=== PATIENT | female | born 2000 | race African-American/Black ===

== ENCOUNTER 2025-05-13 19:33 | Inpatient (IN) | payer BC, SELFPAY ==
[2025-05-13 19:35] VITALS: BMI 26.5
[2025-05-13 20:39] VITALS: BP 115/78; PULSE 89; RESP 20; TEMP 36.6; O2SAT 100
[2025-05-13] MEDS: METOCLOPRAMIDE INJ 5 MG/ML VIAL 2 ML 10 MG IVP (21:06)
[2025-05-13] MEDS: RINGERS LACTATED 1000 ML 1,000 ML 999 ML IV ×2 (21:06→22:57)
--- NOTE | 2025-05-13 21:13 | PD.EDNV ---
Nausea/Vomit./Diarrhea-RME/HPI General Chief complaint: Nausea/Vomiting/Diarrhea Stated complaint: VOMITING Time Seen by Provider: 05/13/25 20:45 Arrival date/time: 05/13/25 19:33 24F with history of DM1 presents to ED with several days of epigastric pain and N/V. Zofran does not provide relief. Patient states this feels a bit like DKA, which she has had before. Limitations: no limitations Related Data Allergies Allergy/AdvReac Type Severity Reaction Status Date / Time sumatriptan (From Imitrex) Allergy Verified 05/13/25 19:38 Review of Systems Review of Systems Systems Reviewed: All systems reviewed, normal except as documented Constitutional Constitutional: Reports system reviewed and no additional complaints, except as documented, Denies fever(s) and Denies headache(s) ENT Ears, Nose, Mouth, and Throat: Denies disequilibrium and Denies headache(s) Cardiovascular Cardiovascular: Reports system reviewed and no additional complaints, except as documented, Denies chest pain and Denies dyspnea Respiratory Respiratory: Reports system reviewed and no additional complaints, except as documented, Denies cough and Denies dyspnea Gastrointestinal Gastrointestinal: Reports system reviewed and no additional complaints, except as documented, Reports as per HPI, Reports abdominal pain, Reports nausea and Reports vomiting Neurologic Neurologic: Reports system reviewed and no additional complaints, except as documented, Denies confusion, Denies disequilibrium and Denies headache(s) Psychiatric Psychiatric: Denies confusion Past Medical History Social History SMOKING STATUS: Never smoker ED Exam General Limitations: Present no limitations General appearance: Present alert and in no apparent distress Head Head exam: Present atraumatic Eye Eye exam: Present normal appearance, PERRL and EOMI ENT ENT exam: Present normal exam, normal oropharynx and mucous membranes moist Neck Neck exam: Present normal inspection, full ROM and trachea midline Chest Chest inspection: Present normal inspection and symmetric chest wall rise Respiratory Respiratory exam: Present normal lung sounds bilaterally Cardiovascular Cardiovascular exam: Present regular rate, normal rhythm and normal heart sounds Abdominal Exam Abdominal exam: Present soft and normal bowel sounds Extremities Exam Extremities exam: Present normal inspection and full ROM Back Exam Back exam: Present normal inspection and full ROM Neurological Exam Neurological exam: Present alert, oriented X3 and CN II-XII intact Psychiatric Psychiatric exam: Present normal affect and normal mood Skin Skin exam: Present warm, dry, intact and normal color Course Quality Measures none Orders Category Date Time Status Bedside Blood Glucose NOW Care 05/13/25 23:32 Active Bedside Blood Glucose Q6HR Care 05/13/25 23:51 Active COVID-19 Screening Questionnaire NOW Care 05/13/25 22:06 Active Decision to Admit X1 Care 05/13/25 22:06 Completed Fingerstick [Bedside Blood Glucose] NOW Care 05/13/25 20:00 Active Insert IV NOW Care 05/13/25 20:45 Active A1C [Glycohemoglobin w (eAG)] Stat Lab 05/13/25 21:25 Completed Beta Hydroxybutyrate Stat Lab 05/13/25 21:25 Completed CBC Stat Lab 05/13/25 21:25 Completed CMP [Comprehensive Metabolic Panel] Routine Lab 05/14/25 00:54 Completed CMP [Comprehensive Metabolic Panel] Stat Lab 05/13/25 21:25 Completed Drug Screen,Urine Stat Lab 05/13/25 23:10 Completed HCG Qualitative,Urine Stat Lab 05/13/25 23:10 Completed Lipase Stat Lab 05/13/25 21:25 Completed Mag [Magnesium] Stat Lab 05/13/25 21:25 Completed Phosphorous Stat Lab 05/13/25 21:25 Completed Urinalysis, C/S if Indicated Stat Lab 05/13/25 23:10 Completed VBG [Venous Blood Gas] Stat Lab 05/13/25 21:25 Completed Dextrose 50% Syr [D50w Syringe Abboject] Med 05/13/25 22:37 Active 25 ml IV Q15MIN PRN Dextrose 50% Syr [D50w Syringe Abboject] Med 05/13/25 22:37 Active 50 ml IV Q15MIN PRN DiphenhydrAMINE INJ [Benadryl Inj] Med 05/13/25 20:45 Discontinued 12.5 mg IVP X1 ONE Glucagon Inj Med 05/13/25 22:37 Active 1 mg IM Q15MIN PRN INSULIN LISPRO (AdmeLOG) [HumaLOG] Med 05/13/25 22:53 Discontinued 10 unit SC X1 ONE INSULIN LISPRO (AdmeLOG) [HumaLOG] Med 05/14/25 00:01 Discontinued 10 unit SC X1 ONE INSULIN LISPRO (AdmeLOG) [HumaLOG] Med 05/14/25 07:30 Discontinued See Protocol SC AC Insulin Glargine Inj [Lantus Inj] Med 05/13/25 23:00 Discontinued 20 unit SC ACHS Insulin Glargine Inj [Lantus Inj] Med 05/14/25 07:30 Discontinued 20 unit SC ACHS Insulin Glargine Inj [Lantus Inj] Med 05/14/25 21:00 Active 20 unit SC HS Insulin Glargine Inj [Lantus Inj] Med 05/13/25 23:37 Discontinued 20 unit SC X1 ONE Metoclopramide Inj [Reglan Inj] Med 05/13/25 20:45 Discontinued 10 mg IVP X1 ONE Ondansetron Inj [Zofran Inj] Med 05/13/25 22:59 Active 4 mg IVP Q8HR PRN Ringers Lactated 1000 ml [Lactated Ringers] 1,000 ml Med 05/13/25 20:45 Discontinued IV 999 mls/hr Ringers Lactated 1000 ml [Lactated Ringers] 1,000 ml Med 05/13/25 22:40 Discontinued IV 999 mls/hr Vital Signs Vital signs: Vital Signs Temperature 98 F 05/13/25 20:39 Pulse Rate 89 05/13/25 20:39 Respiratory Rate 20 05/13/25 20:39 Blood Pressure 115/78 05/13/25 20:39 Pulse Oximetry (%) 100 05/13/25 20:39 Oxygen Delivery Method Room Air 05/13/25 20:39 O2 at 100% on RA and WNLs Nausea/Vomiting/Diarrhea MDM Narrative MDM Narrative:: 24F with history of DM1 presents to ED with several days of epigastric pain and N/V. Zofran does not provide relief. Patient states this feels a bit like DKA, which she has had before. Physical exam reveals well-appearing female. Patient is afebrile, calm, and alert. Minimal leukocytosis. CMP remarkable for BS in 400s and anion gap of 17. Beta 3.4. Blood pH normal. Spoke to IM resident who reports to Dr. Rey, who will admit patient. Patient data External records reviewed:: None Clinical information provided by:: patient Social determinants that could affect healthcare access:: none Patient has the following chronic illnesses:: DM How is presenting disease/condition affected by chronic disease/condition?: no chronic disease Evaluation data The following diagnostics were reviewed and interpreted by me:: lab results Lab and/or radiology exams considered but not ordered:: ordered Interpretation Summary: above Medications / Prescriptions Medications / Prescriptions considered but not ordered:: ordered Medication administrations:: Medication Administration History Acetaminophen (Acetaminophen 325 Mg Tablet) 650 mg PO Q6H PRN PRN Reason: Fever >101.5 Stop: 06/13/25 02:21 Dextrose (Dextrose 50%-Water Inj 50 Ml Syringe) 25 ml IV Q15MIN PRN PRN Reason: BG 50-70 responsive npo pt Stop: 06/12/25 22:36 Dextrose (Dextrose 50%-Water Inj 50 Ml Syringe) 50 ml IV Q15MIN PRN PRN Reason: BG <50 OR BG <70 & pt unresponsive Stop: 06/12/25 22:36 Glucagon (Glucagon Inj 1 Mg Vial) 1 mg IM Q15MIN PRN PRN Reason: BG <70, and no IV access Heparin Sodium (Porcine) (Heparin Sod Inj 5000 Unit/Ml Vial) 5,000 unit SC Q8HR [facility] Stop: 05/28/25 05:59 Insulin Glargine (Insulin Glargine (Lantus) 5 Unit/0.05 Ml (Per 5 Units)) 20 unit SC [facility] Stop: 06/13/25 20:59 Insulin Human Lispro (Insulin Lispro (Admelog) 1 Unit/0.01 Ml Unit) [address] [facility]; Protocol Stop: 06/13/25 07:29 Ondansetron HCl (Ondansetron Inj 2 Mg/Ml Inj 2 Ml) 4 mg IVP Q8HR PRN; Protocol PRN Reason: NAUSEA OR VOMITING Stop: 06/12/25 22:58 Discontinued Medications Diphenhydramine HCl (Diphenhydramine Inj 50 Mg/Ml Vial) 12.5 mg IVP X1 ONE Stop: 05/13/25 20:46 Last Admin: 05/13/25 21:06 Dose: 12.5 mg Documented By: PASCALE Lactated Ringer's (Lactated Ringers) 1,000 mls @ 999 mls/hr IV .Q1H1M ONE Stop: 05/13/25 21:45 Last Infusion: 05/14/25 01:10 Dose: Infused Documented By: Admin: 05/13/25 21:06 Dose: 999 mls/hr Documented By: PASCALE Lactated Ringer's (Lactated Ringers) 1,000 mls @ 999 mls/hr IV .Q1H1M ONE Stop: 05/13/25 23:40 Last Infusion: 05/14/25 01:10 Dose: Infused Documented By: Admin: 05/13/25 22:57 Dose: 999 mls/hr Documented By: HERNESTO Insulin Glargine (Insulin Glargine (Lantus) 5 Unit/0.05 Ml (Per 5 Units)) [address] [facility] Stop: 06/13/25 07:29 Last Admin: 05/14/25 00:01 Dose: 20 unit Documented By: HERNESTO Co-signed By: ISABEL Insulin Glargine (Insulin Glargine (Lantus) 5 Unit/0.05 Ml (Per 5 Units)) [address] [facility] Stop: 06/12/25 22:59 Last Admin: 05/14/25 00:17 Dose: Not Given Documented By: HERNESTO Non-Admin Reason: Duplicate Medication on eMAR Insulin Glargine (Insulin Glargine (Lantus) 5 Unit/0.05 Ml (Per 5 Units)) 20 unit SC X1 ONE Stop: 05/14/25 00:00 Last Admin: 05/14/25 00:00 Dose: Not Given Documented By: HERNESTO Non-Admin Reason: Cancelled by Provider Insulin Human Lispro (Insulin Lispro (Admelog) 1 Unit/0.01 Ml Unit) 0 unit SC AC [facility]; Protocol Stop: 06/13/25 07:29 Insulin Human Lispro (Insulin Lispro (Admelog) 1 Unit/0.01 Ml Unit) 10 unit SC X1 ONE Stop: 05/13/25 22:54 Last Admin: 05/13/25 22:58 Dose: 10 unit Documented By: HERNESTO Co-signed By: ISABEL Insulin Human Lispro (Insulin Lispro (Admelog) 1 Unit/0.01 Ml Unit) 10 unit SC X1 ONE Stop: 05/14/25 00:02 Last Admin: 05/14/25 01:08 Dose: 10 unit Documented By: HERNESTO Co-signed By: ISABEL Metoclopramide HCl (Metoclopramide Inj 5 Mg/Ml Vial 2 Ml) 10 mg IVP X1 ONE; Protocol Stop: 05/13/25 20:46 Last Admin: 05/13/25 21:06 Dose: 10 mg Documented By: CB above Consultations Consultation(s) initiated? (list below): Yes Diagnosis Nausea Differential Diagnosis: traveler's diarrhea, food poisoning, gastroenteritis, clostridium difficile infection, drug-induced nausea and vomiting, dehydration and other (hyperglycemia, DKA, pancreatitis) Most likely diagnosis given after review of the tests above:: hyperglycemia Admission Indicated Admission indicated?: indicated Admission Request Was there a request for admission?: Yes Admission Attestation Admission request attestation: Discussed case with [Dr. Rey] from Hospitalist service regarding admission. Discussed patients ED course, exam findings, labs, and radiology results. The Hospitalist [agrees] to accept the patient for admission. Disposition Plan Disposition Plan: Admit Discharge Plan Plan Patient Disposition: Admit Acute Care w/in Hospital Problem List Clinical Impression: Hyperglycemia due to type 1 diabetes mellitus
[2025-05-13 21:32] LABS: Base Excess, Venous 1 (-3-3); O2 Saturation, Venous 76 % (96-97); PCO2, Venous 29 mmHg (36-56); PO2, Venous 36 mmHg (15-58); pH, Venous 7.51 (7.33-7.66)
[2025-05-13 21:33] LABS: Basophils # (Auto) 0.0 Thou/mm3 (0.0-0.2); Basophils % (Auto) 0 % (0-2.5); Eosinophils # (Auto) 0.0 Thou/mm3 (0.0-0.5); Eosinophils % (Auto) 0 % (0-10); Hematocrit 40.5 % (36.0-46.0); Hemoglobin 14.0 g/dL (12.0-16.0); Immature Granulocytes Auto 0.02 Thou/mm3 (0.00-0.00); Lymphocytes # (Auto) 1.2 Thou/mm3 (1.0-4.8); Lymphocytes % (Auto) 11 % (10-50); Mean Corpuscular HGB Conc 34.6 g/dl (31.0-37.0); Mean Corpuscular Hemoglobin 31.1 pg (25.0-35.0); Mean Corpuscular Volume 90 fL (80-100); Monocytes # (Auto) 0.4 Thou/mm3 (0.0-0.8); Monocytes % (Auto) 3 % (0-12); Neutrophils # (Auto) 9.8 Thou/mm3 (1.8-7.7); Neutrophils % (Auto) 85 % (37-80); Nucleated Red Blood Cell # 0.00 Thou/mm3 (0.00-0.00); Nucleated Red Blood Cell % 0 /100 WBC (0); Platelet Count 327 Thou/mm3 (140-440); RDW Standard Deviation 39.1 fL (36.4-46.3); Red Blood Count 4.50 Miln/mm3 (4.00-5.20); White Blood Count 11.4 Thou/mm3 (3.6-11.0)
[2025-05-13 21:51] LABS: Beta Hydroxybutyrate 3.4 mmol/L (<0.6)
[2025-05-13 21:57] LABS: Glucose Estimated Average 258 mg/dL (80-131); Hemoglobin A1C 10.6 % Hgb (4.8-6.0)
[2025-05-13 22:00] LABS: Alanine Aminotransferase 26 U/L (10-49); Albumin, Serum 4.5 gm/dL (3.5-5.0); Albumin/Globulin Ratio 1.5 (1.2-2.2); Alkaline Phosphatase 138 U/L (46-116); Anion Gap 17 (7-16); Aspartate Amino Transferase 28 U/L (0-34); BUN/Creatinine Ratio 7 Ratio (12-20); Bilirubin,Total 0.9 mg/dL (0.3-1.2); Blood Urea Nitrogen 6 mg/dL (9-23); Calcium 9.5 mg/dL (8.3-10.6); Calcium (Corrected) 9.5 mg/dL (8.5-10.1); Carbon Dioxide 22.9 mMol/L (20.0-31.0); Chloride 96 mMol/L (98-107); Creatinine (Component) 0.9 mg/dL (0.6-1.3); Estimated Creatinine Clearance 85.0 mL/min (>60); Globulin 3.1 gm/dL (2.3-3.5); Lipase 24 U/L (12-53); Magnesium 2.0 mg/dL (1.6-2.6); Osmolality,Calculated 287 (275-295); Phosphorous 2.6 mg/dL (2.4-5.1); Potassium 4.6 mMol/L (3.4-5.1); Sodium 136 mMol/L (136-145); Total Protein 7.6 gm/dL (5.7-8.2); eGFR > 60 See Note
[2025-05-13 22:01] LABS: Glucose 425 mg/dL (74-106)
[2025-05-13 22:18] VITALS: BP 134/91; PULSE 96; RESP 17; O2SAT 100
[2025-05-13] MEDS: INSULIN LISPRO (AdmeLOG) 1 UNIT/0.01 ML UNIT 10 UNIT SC (22:58)
[2025-05-13 23:00] VITALS: BP 134/91; PULSE 95; RESP 19; TEMP 36.7; O2SAT 97
[2025-05-13 23:31] LABS: Collection Type, Urine Clean Catch
[2025-05-13 23:35] LABS: Bilirubin,Urine Negative (Negative); Blood,Urine Negative (Negative); Clarity,Urine Clear (Clear/Hazy); Color,Urine Colorless (Lt Yel-Yel); Culture Indicated,Urine Not Indicated; Glucose, Urine 4+ (Negative); Ketones,Urine 4+ (Negative); Leukocyte Esterase,Urine Negative (Negative); Nitrite,Urine Negative (Negative); PH,Urine 7.5 (5.0-7.0); Protein,Urine Negative (Neg - Trace); RBC,Urine 1 /hpf (0-3); Specific Gravity,Urine 1.023 (1.001-1.035); Squamous Epithelial Cell,Urine 4 /hpf (0-5); Urobilinogen,Urine Negative mg/dL (0.0-1.0); WBC,Urine 1 /hpf (0-5)
[2025-05-13 23:40] LABS: Amphetamine/Methamp Scrn,U Negative (Negative); Barbiturate Screen,Urine Negative (Negative); Benzodiazepines Screen,Urine Negative (Negative); Benzoylecgonine Screen, Ur Negative (Negative); Fentanyl Screen,Urine Negative (Negative); Opiate Screen,Urine Negative (Negative); THC Screen,Urine Negative (Negative)
[2025-05-14] VITALS (7 sets, daily range): BP systolic 101–127; BP diastolic 66–84; PULSE 70–97; RESP 14–100; TEMP 36.4–36.7; O2SAT 95–100; BMI 28.7; BMI 29.0
[2025-05-14] MEDS: INSULIN GLARGINE (Lantus) 5 UNIT/0.05 ML (PER 5 UNITS) 20 UNIT SC (00:01)
[2025-05-14] MEDS: INSULIN LISPRO (AdmeLOG) 1 UNIT/0.01 ML UNIT 10 UNIT SC (01:08)
[2025-05-14 01:27] LABS: Alanine Aminotransferase 22 U/L (10-49); Albumin, Serum 3.8 gm/dL (3.5-5.0); Albumin/Globulin Ratio 1.5 (1.2-2.2); Alkaline Phosphatase 115 U/L (46-116); Anion Gap 13 (7-16); Aspartate Amino Transferase 25 U/L (0-34); BUN/Creatinine Ratio 9 Ratio (12-20); Bilirubin,Total 0.7 mg/dL (0.3-1.2); Blood Urea Nitrogen 7 mg/dL (9-23); Calcium 9.0 mg/dL (8.3-10.6); Calcium (Corrected) 9.2 mg/dL (8.5-10.1); Carbon Dioxide 22.0 mMol/L (20.0-31.0); Chloride 104 mMol/L (98-107); Creatinine (Component) 0.8 mg/dL (0.6-1.3); Estimated Creatinine Clearance 95.7 mL/min (>60); Globulin 2.5 gm/dL (2.3-3.5); Glucose 323 mg/dL (74-106); Osmolality,Calculated 287 (275-295); Potassium 4.3 mMol/L (3.4-5.1); Sodium 139 mMol/L (136-145); Total Protein 6.3 gm/dL (5.7-8.2); eGFR > 60 See Note
[2025-05-14 01:29] LABS: HCG Qualitative,Urine Negative
--- NOTE | 2025-05-14 02:27 | PD.RESHP ---
Documentation for date of: 05/14/25 HPI History of Present Illness History of present illness: Patient is a 24-year-old female with past medical history of type 1 diabetes on insulin and asthma who presented to the ED on 05/14/2025 with nausea and vomiting for the past 2 days. 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 Was taking insulin Lantus 20 units nightly and 10 units lispro with meals. Last took Lantus last night and lispro after breakfast this morning. Reports history of DKA where she had to be admitted to the ICU 2 years ago, required insulin drip. Has not had episodes since. Has not established with wheel adjuster since moving here a couple months ago. ED Course: -Initial vitals were BP 115/78, HR 89, RR 20, temp 98F, 100% on room air. -Labs significant for WBC 11.4, VBG pH 7.51, OPR516, PO256. Potassium 4.6, chloride 96, bicarb 22.9, anion gap 17, BUN 6, creatinine 0.9 alk phos 138. Glucose 425. A1c 10.6. Beta hydroxybutyrate 3.4. - No imaging or EKG obtained. -In the ED, patient was given LR 1 L x 2, metoclopramide 10 mg x 1, diphenhydramine x 1, insulin glargine 20 units, insulin lispro 10 units x 2. -Patient was admitted for anion gap secondary to DKA. Review of Systems Review of systems otherwise negative except what is mentioned above. Past Medical History: As above Family History: Mother has sickle cell disease, dad has asthma Surgical History: None Social History: Denies history of smoking, denies recreational drug use. Occasional alcohol consumption. Current Medications: Insulin Lantus 20 units nightly, insulin 10 units with meals. (Source: patient, pending official med rec) Allergies: Imitrex (anaphylactic shock) Exam Vital Signs Temp Pulse Resp BP Pulse Ox O2 Del Method 97.9 F 97 18 127/84 100 Room Air 05/14/25 02:00 05/14/25 02:00 05/14/25 02:00 05/14/25 02:00 05/14/25 02:00 05/14/25 02:00 Narrative Exam Physical Exam General: Awake and in no acute distress. Conversational and non-toxic appearing. HEENT: Normocephalic, atraumatic, mucous membranes moist. Heart: Regular rate and rhythm, normal S1 and S2, no murmurs. Lungs: Clear to auscultation with no wheezing or crackles. Abdomen: Soft, nondistended, positive bowel sounds. Tenderness in epigastric/upper abdominal region. Negative Keita's sign. No guarding or rebound tenderness. Neurologic: Alert and oriented x3, no gross neurological deficit, and patient able to move all 4 extremities. Extremities: No edema. Skin: No rash or ecchymoses. Results: Labs 05/13/25 21:25 05/14/25 00:54 Labs: Short CBC 05/13/25 Range/Units 21:25 WBC 11.4 H (3.6-11.0) Thou/mm3 Hgb 14.0 (12.0-16.0) g/dL Hct 40.5 (36.0-46.0) % Plt Count 327 (140-440) Thou/mm3 BMP 05/13/25 05/14/25 21:25 00:54 Sodium 136 139 Potassium 4.6 4.3 Chloride 96 L 104 Carbon Dioxide 22.9 22.0 BUN 6 L 7 L Creatinine 0.9 0.8 Glucose 425 H* 323 H D Calcium 9.5 9.0 Liver Function 05/13/25 05/14/25 Range/Units 21:25 00:54 Total Bilirubin 0.9 0.7 (0.3-1.2) mg/dL AST 28 25 (0-34) U/L ALT 26 22 (10-49) U/L Alkaline Phosphatase 138 H 115 D (46-116) U/L Albumin 4.5 3.8 D (3.5-5.0) gm/dL Urine 05/13/25 Range/Units 23:10 Urine Color Colorless A (Lt Yel-Yel) Urine Clarity Clear (Clear/Hazy) Urine pH 7.5 H (5.0-7.0) Ur Specific [place] 1.023 (1.001-1.035) Urine Protein Negative (Neg - Trace) Urine Glucose (UA) 4+ A (Negative) ABG Interpretation ABG results: 05/13/25 21:25 VBG pH 7.51 VBG pCO2 29 L VBG pO2 36 VBG Base Excess 1 Quality Measures Quality Measures none Medications Home Medications and Allergies Allergies Allergy/AdvReac Type Severity Reaction Status Date / Time sumatriptan (From Imitrex) Allergy Verified 05/13/25 19:38 Visit Medications Acetaminophen (Acetaminophen 325 Mg Tablet) 650 mg PO Q6H PRN PRN Reason: Fever >101.5 Stop: 06/13/25 02:21 Dextrose (Dextrose 50%-Water Inj 50 Ml Syringe) 25 ml IV Q15MIN PRN PRN Reason: BG 50-70 responsive npo pt Stop: 06/12/25 22:36 Dextrose (Dextrose 50%-Water Inj 50 Ml Syringe) 50 ml IV Q15MIN PRN PRN Reason: BG <50 OR BG <70 & pt unresponsive Stop: 06/12/25 22:36 Glucagon (Glucagon Inj 1 Mg Vial) 1 mg IM Q15MIN PRN PRN Reason: BG <70, and no IV access Heparin Sodium (Porcine) (Heparin Sod Inj 5000 Unit/Ml Vial) 5,000 unit SC Q8HR [facility] Stop: 05/28/25 05:59 Insulin Glargine (Insulin Glargine (Lantus) 5 Unit/0.05 Ml (Per 5 Units)) 20 unit SC HS [facility] Stop: 06/13/25 20:59 Insulin Human Lispro (Insulin Lispro (Admelog) 1 Unit/0.01 Ml Unit) 0 unit SC [facility]; Protocol Stop: 06/13/25 07:29 Ondansetron HCl (Ondansetron Inj 2 Mg/Ml Inj 2 Ml) 4 mg IVP Q8HR PRN; Protocol PRN Reason: NAUSEA OR VOMITING Stop: 06/12/25 22:58 Discontinued Medications Diphenhydramine HCl (Diphenhydramine Inj 50 Mg/Ml Vial) 12.5 mg IVP X1 ONE Stop: 05/13/25 20:46 Last Admin: 05/13/25 21:06 Dose: 12.5 mg Lactated Ringer's (Lactated Ringers) 1,000 mls @ 999 mls/hr IV .Q1H1M ONE Stop: 05/13/25 21:45 Last Infusion: 05/14/25 01:10 Dose: Infused Lactated Ringer's (Lactated Ringers) 1,000 mls @ 999 mls/hr IV .Q1H1M ONE Stop: 05/13/25 23:40 Last Infusion: 05/14/25 01:10 Dose: Infused Insulin Glargine (Insulin Glargine (Lantus) 5 Unit/0.05 Ml (Per 5 Units)) 20 unit SC [facility] Stop: 06/13/25 07:29 Last Admin: 05/14/25 00:01 Dose: 20 unit Insulin Glargine (Insulin Glargine (Lantus) 5 Unit/0.05 Ml (Per 5 Units)) 20 unit SC ACHS [facility] Stop: 06/12/25 22:59 Last Admin: 05/14/25 00:17 Dose: Not Given Insulin Glargine (Insulin Glargine (Lantus) 5 Unit/0.05 Ml (Per 5 Units)) 20 unit SC X1 ONE Stop: 05/14/25 00:00 Last Admin: 05/14/25 00:00 Dose: Not Given Insulin Human Lispro (Insulin Lispro (Admelog) 1 Unit/0.01 Ml Unit) 0 unit SC [facility]; Protocol Stop: 06/13/25 07:29 Insulin Human Lispro (Insulin Lispro (Admelog) 1 Unit/0.01 Ml Unit) 10 unit SC X1 ONE Stop: 05/13/25 22:54 Last Admin: 05/13/25 22:58 Dose: 10 unit Insulin Human Lispro (Insulin Lispro (Admelog) 1 Unit/0.01 Ml Unit) 10 unit SC X1 ONE Stop: 05/14/25 00:02 Last Admin: 05/14/25 01:08 Dose: 10 unit Metoclopramide HCl (Metoclopramide Inj 5 Mg/Ml Vial 2 Ml) 10 mg IVP X1 ONE; Protocol Stop: 05/13/25 20:46 Last Admin: 05/13/25 21:06 Dose: 10 mg Assessment & Plan Plan Patient is a 24-year-old female with past medical history of type 1 diabetes on insulin and asthma who presented to the ED on 05/14/2025 with nausea and vomiting, admitted for anion gap likely secondary to DKA. #Concern for DKA #Anion gap?resolved #Hyperglycemia #Type 1 diabetes, insulin at home On admission, bicarb 22.9 however anion gap slightly elevated at 17, improved to 13 after IVF. Beta hydroxybutyrate 3.4, glucose 425 > 211. VBG pH 7.51, pCO2 29, pO2 36. Not acidotic however presented with nausea and vomiting for the past 2 days, reports similar symptoms to her last DKA episode 2 years ago. Epigastric/upper abdominal soreness likely secondary to persistent nausea and vomiting for the past 2 days, likely musculoskeletal tenderness. Of note A1c 10.6. She recently moved from [place] a couple months ago, has not established with wheel adjuster here. Takes Lantus 20 units nightly and lispro 10 units with meals. Plan: - Status post NS 1 L x 2, Lantus 20 and lispro 10 x 2 - Started home dose Lantus 20 qhs and SSI (step 2) - Monitor glucose every 6 hour - Recalculate total daily dose of insulin based on glucose levels to re-evaluate current regimen - Referral to wheel adjuster outpatient #Mild leukocytosis, likely reactive Likely reactive secondary to DKA above. WBC 11.4. UA negative. Afebrile on admission. Low suspicion for infection at this time. - Continue to monitor CBC #History of asthma Per patient. Inhaler not part of home meds. Pending official med rec. - Oxygen prn Health Maintenance Disposition: further management of DKA/hyperglycemia DVT prophylaxis: Heparin SQ GI prophylaxis: none needed Diet: low carb consistent CODE STATUS: FULL Patient plan of care was discussed with the attending physician, Dr. Rey. Martine Mart, PGY-1 Attending Provider Attestation/Addendum I attest that I was physically present for the evaluation, physical examination, lab and imaging review of the patient with the residents. I discussed the case with the residents and agree with the findings and plans of care as documented above. After examination of the patient and review of the clinical data I feel that this patient needs admission to the hospital for further treatment/evaluation. Patient is a 24 years old female with past medical history of type 1 diabetes mellitus on insulin who presented to the ED with complaint of nausea vomiting abdominal discomfort. In the ED, initial vitals were within normal limits except for mild tachypnea. Lab results show WBC of 11.4, bicarbonate 22.9, anion gap 17, glucose 425, hemoglobin A1c 10.6 and beta hydroxybutyrate 3.4. Follow-up labs after LR bolus 2 L, lispro 20 units, and Lantus 20 units showed improvement in glucose to 200s and anion gap of 13. VBG was done, showed pH of 7.51 and pCO2 29. We will admit the patient for further management of hyperglycemia and concern for progression to DKA. We will start her on home Lantus 20 at bedtime along with sliding scale. We will monitor her glucose closely and start her on mealtime lispro accordingly. We will also start her on low carb consistent diet. Ugo Rey MD
[2025-05-14 04:44] LABS: Basophils # (Auto) 0.0 Thou/mm3 (0.0-0.2); Basophils % (Auto) 0 % (0-2.5); Eosinophils # (Auto) 0.0 Thou/mm3 (0.0-0.5); Eosinophils % (Auto) 0 % (0-10); Hematocrit 38.4 % (36.0-46.0); Hemoglobin 13.3 g/dL (12.0-16.0); Immature Granulocytes Auto 0.02 Thou/mm3 (0.00-0.00); Lymphocytes # (Auto) 2.6 Thou/mm3 (1.0-4.8); Lymphocytes % (Auto) 31 % (10-50); Mean Corpuscular HGB Conc 34.6 g/dl (31.0-37.0); Mean Corpuscular Hemoglobin 31.5 pg (25.0-35.0); Mean Corpuscular Volume 91 fL (80-100); Monocytes # (Auto) 0.6 Thou/mm3 (0.0-0.8); Monocytes % (Auto) 7 % (0-12); Neutrophils # (Auto) 5.3 Thou/mm3 (1.8-7.7); Neutrophils % (Auto) 62 % (37-80); Nucleated Red Blood Cell # 0.00 Thou/mm3 (0.00-0.00); Nucleated Red Blood Cell % 0 /100 WBC (0); Platelet Count 274 Thou/mm3 (140-440); RDW Standard Deviation 39.9 fL (36.4-46.3); Red Blood Count 4.22 Miln/mm3 (4.00-5.20); White Blood Count 8.5 Thou/mm3 (3.6-11.0)
[2025-05-14] MEDS: DEXTROSE 50%-WATER INJ 50 ML SYRINGE 25 ML IV (04:44)
--- NOTE | 2025-05-14 04:47 | PC.NURSE ---
Went to check on patient found patient lethargic, sweaty, and slurring words. BS checked and noted to be 55. Md was notified. Patient was given 1/2 amp of D50, 3 cartons of orange juice, jayla crackers and peanut butter. nurse continues to keep patient talking. Patient continues to states she is sleepy. report will be called on patient however patient will be held in ED until bs stabalizes.
[2025-05-14 05:13] LABS: Albumin, Serum 4.2 gm/dL (3.5-5.0); Anion Gap 10 (7-16); BUN/Creatinine Ratio 7 Ratio (12-20); Blood Urea Nitrogen < 5 mg/dL (9-23); Calcium 9.4 mg/dL (8.3-10.6); Calcium (Corrected) 9.4 mg/dL (8.5-10.1); Carbon Dioxide 28.2 mMol/L (20.0-31.0); Chloride 104 mMol/L (98-107); Creatinine (Component) 0.7 mg/dL (0.6-1.3); Estimated Creatinine Clearance 109.3 mL/min (>60); Glucose 58 mg/dL (74-106); Magnesium 1.8 mg/dL (1.6-2.6); Osmolality,Calculated 278 (275-295); Phosphorous 2.7 mg/dL (2.4-5.1); Potassium 3.7 mMol/L (3.4-5.1); Sodium 142 mMol/L (136-145); eGFR > 60 See Note
--- NOTE | 2025-05-14 07:23 | PD.RESPRO ---
Documentation for date of: 05/14/25 Exam Vital Signs Temp Pulse Resp BP Pulse Ox O2 Del Method 98.0 F 70 18 109/80 98 Room Air 05/14/25 06:30 05/14/25 06:30 05/14/25 06:30 05/14/25 06:30 05/14/25 06:30 05/14/25 06:30 Objective Labs 05/14/25 04:17 05/14/25 04:17 Labs: Laboratory Results - last 24 hr 05/13/25 05/13/25 05/14/25 21:25 23:10 00:54 WBC 11.4 H RBC 4.50 Hgb 14.0 Hct 40.5 MCV 90 MCH 31.1 MCHC 34.6 RDW Std Deviation 39.1 Plt Count 327 Neut % (Auto) 85 H Lymph % (Auto) 11 Finney % (Auto) 3 Eos % (Auto) 0 Baso % (Auto) 0 Neut # (Auto) 9.8 H Lymph # (Auto) 1.2 Finney # (Auto) 0.4 Eos # (Auto) 0.0 Baso # (Auto) 0.0 Immature Gran # (Auto) 0.02 H Absolute Nucleated RBC 0.00 Immature Gran % 0 Nucleated RBC % 0 VBG pH 7.51 VBG pCO2 29 L VBG pO2 36 VBG O2 Sat (Rafi) 76 L VBG Base Excess 1 Sodium 136 139 Potassium 4.6 4.3 Chloride 96 L 104 Carbon Dioxide 22.9 22.0 Anion Gap 17 H 13 BUN 6 L 7 L Creatinine 0.9 0.8 Estim Creat Clear Calc 85.0 95.7 eGFR > 60 > 60 BUN/Creatinine Ratio 7 L 9 L Glucose 425 H* [address] Glu mg/dL 258 H Hemoglobin A1c 10.6 H Calculated Osmolality 287 287 Calcium 9.5 9.0 Corrected Calcium 9.5 9.2 Phosphorus 2.6 Magnesium 2.0 Total Bilirubin 0.9 0.7 AST 28 25 ALT 26 22 Alkaline Phosphatase 138 H 115 D Total Protein 7.6 6.3 Albumin 4.5 3.8 D Globulin 3.1 2.5 Albumin/Globulin Ratio 1.5 1.5 Lipase 24 Beta-Hydroxybutyrate/Acetoacetate 3.4 H Ur Collection Type Clean Catch Urine Color Colorless A Urine Clarity Clear Urine pH 7.5 H Ur Specific [place] 1.023 Urine Protein Negative Urine Glucose (UA) 4+ A Urine Ketones 4+ A Urine Blood Negative Urine Nitrite Negative Urine Bilirubin Negative Urine Urobilinogen (Auto) Negative Ur Leukocyte Esterase Negative Urine RBC 1 Urine WBC 1 Ur Squamous Epith Cells 4 Urine Bacteria None Ur Culture Indicated? Not Indicated Urine HCG, Qual Negative Urine Opiates Screen Negative Urine Fentanyl Screen Negative Ur Barbiturates Screen Negative U Amphetamin/Meth Scrn Negative U Benzodiazepines Scrn Negative U Cocaine Metab Screen Negative U Marijuana (THC) Screen Negative 05/14/25 04:17 WBC 8.5 RBC 4.22 Hgb 13.3 Hct 38.4 MCV 91 MCH 31.5 MCHC 34.6 RDW Std Deviation 39.9 Plt Count 274 D Neut % (Auto) 62 Lymph % (Auto) 31 Finney % (Auto) 7 Eos % (Auto) 0 Baso % (Auto) 0 Neut # (Auto) 5.3 Lymph # (Auto) 2.6 Finney # (Auto) 0.6 Eos # (Auto) 0.0 Baso # (Auto) 0.0 Immature Gran # (Auto) 0.02 H Absolute Nucleated RBC 0.00 Immature Gran % 0 Nucleated RBC % 0 VBG pH VBG pCO2 VBG pO2 VBG O2 Sat (Rafi) VBG Base Excess Sodium 142 Potassium 3.7 D Chloride 104 Carbon Dioxide 28.2 Anion Gap 10 BUN < 5 L Creatinine 0.7 Estim Creat Clear Calc 109.3 eGFR > 60 BUN/Creatinine Ratio 7 L Glucose [address] Glu mg/dL Hemoglobin A1c Calculated Osmolality 278 Calcium 9.4 Corrected Calcium 9.4 Phosphorus 2.7 Magnesium 1.8 Total Bilirubin AST ALT Alkaline Phosphatase Total Protein Albumin 4.2 Globulin Albumin/Globulin Ratio Lipase Beta-Hydroxybutyrate/Acetoacetate Ur Collection Type Urine Color Urine Clarity Urine pH Ur Specific [place] Urine Protein Urine Glucose (UA) Urine Ketones Urine Blood Urine Nitrite Urine Bilirubin Urine Urobilinogen (Auto) Ur Leukocyte Esterase Urine RBC Urine WBC Ur Squamous Epith Cells Urine Bacteria Ur Culture Indicated? Urine HCG, Qual Urine Opiates Screen Urine Fentanyl Screen Ur Barbiturates Screen U Amphetamin/Meth Scrn U Benzodiazepines Scrn U Cocaine Metab Screen U Marijuana (THC) Screen ABG Interpretation ABG results: 05/13/25 21:25 VBG pH 7.51 VBG pCO2 29 L VBG pO2 36 VBG Base Excess 1 Quality Measures Quality Measures none Assessment & Plan Assessment Current Active Medications: Generic Name Dose Route Start Last Admin Trade Name Freq PRN Reason Stop Dose Admin Acetaminophen 650 mg 05/14/25 02:22 Acetaminophen 325 Mg Tablet PO 06/13/25 02:21 Q6H PRN Fever >101.5 Dextrose 25 ml 05/13/25 22:37 05/14/25 04:44 Dextrose 50%-Water Inj 50 Ml Syringe IV 06/12/25 22:36 25 ml Q15MIN PRN Administration BG 50-70 responsive npo pt Dextrose 50 ml 05/13/25 22:37 Dextrose 50%-Water Inj 50 Ml Syringe IV 06/12/25 22:36 Q15MIN PRN BG <50 OR BG <70 & pt unresponsive Glucagon 1 mg 05/13/25 22:37 Glucagon Inj 1 Mg Vial IM Q15MIN PRN BG <70, and no IV access Heparin Sodium (Porcine) 5,000 unit 05/14/25 06:00 05/14/25 07:00 Heparin Sod Inj 5000 Unit/Ml Vial SC 05/28/25 05:59 Not Given Q8HR [facility] Insulin Glargine 20 unit 05/14/25 21:00 Insulin Glargine (Lantus) 5 Unit/0.05 Ml (Per 5 Units) SC 06/13/25 20:59 HS [facility] Insulin Human Lispro 0 unit 05/14/25 06:00 05/14/25 06:59 Insulin Lispro (Admelog) 1 Unit/0.01 Ml Unit SC 06/13/25 05:59 Not Given Q6HR [facility] Protocol Ondansetron HCl 4 mg 05/13/25 22:59 Ondansetron Inj 2 Mg/Ml Inj 2 Ml IVP 06/12/25 22:58 Q8HR PRN NAUSEA OR VOMITING Protocol
[2025-05-14] MEDS: POTASSIUM CHLORIDE 10% 20 MEQ/15 ML UDC 40 MEQ PO (07:35)
[2025-05-14] MEDS: RINGERS LACTATED 1000 ML 1,000 ML 999 ML IV (09:53)
[2025-05-14] MEDS: INSULIN LISPRO (AdmeLOG) 1 UNIT/0.01 ML UNIT SC (11:34)
--- NOTE | 2025-05-14 17:48 | ESDS_ITS ---
<Statement entered by Monty Barillas MD - 05/18/25 14:37> I reviewed above note and agree with findings and plans. I have also personally examined the patient with medicine team and went over assessment and plan with medical team including mechanical intern and resident physician. <Statement entered by Maykel James MD - 05/14/25 19:03> Patient was seen and examined by me personally. I have reviewed the below documentation by the team resident and agree with its findings. Discharge plan was discussed with the attending, Dr. Barillas 24-year-old female with past medical history of asthma and type 1 diabetes mellitus, admitted overnight for mild DKA, pH was stable patient was never had acidotic pH. Patient received 2 L fluid bolus overnight was given additional 1 L today as well, likely trigger for DKA patient's dehydration and some gastroenteritis which patient had 3 to 5 days prior to worsening of symptoms. This morning patient is tolerating diet well, blood glucose well-controlled with sliding scale insulin and Lantus. Patient reports being adherent to insulin however has recently moved to [place] and does not have access to medication or PCP. Patient is stable for discharge, patient advised to follow-up in [facility], was prescribed CGM, received diabetic education. Patient is stable for discharge, responded well to hospital treatment. Maykel James MD Internal Medicine, PGY-2 Planned Discharge Date 05/14/25 DS: Providers Provider Date of admission: 05/14/25 02:22 Primary care physician: Physician No Primary/Family Admitting Provider: Ugo Rey MD Attending Provider on Admission: Ugo Rey MD Consults: 05/14/25 07:48 Referral Registered Dietitian Routine Comment: Referral Registered Dietitian Urgent Comment: Attending Provider on DC: Dr. Monty Barillas MD Discharging Provider: Dr. Monty Barillas MD Anticipated date of discharge: 05/14/25 DS: Diagnosis Problem List Completed Was Problem List Reviewed/Reconciled?: Yes Hospital Course Hospital Course Hospital course: Summary 24-year-old female past medical history of asthma and type 1 presented to ED with chief complaint of nausea, vomiting and lightheadedness and admitted overnight for mild DKA. While in the ED patient was stable and never had any acidotic pH. She received 2 L of lactated Ringer fluid, diphenhydramine, insulin glargine 20 units, insulin lispro 10 units. Patient was admitted was given another 1 L LR due to concern of possible dehydration and mild gastroenteritis due few days of worsening symptoms and poor PO intake. Patient symptoms improved post admission, managed on insulin sliding scale and Lantus. Patient reports adherence to medication regimen, however due to recent relocation, she is currently has no access to medication or band tacker. Her condition has shown marked improvement over the hospitalization. She has been advised to establish care with a local clinic for follow-up and referral to band tacker. She is stable for discharge home. Discharge recommendation: - Educated importance of adequate hydration - Follow-up with PCP in 1 to 2 weeks - Continue rest of medications as previously prescribed Start on Tresiba FlexTouch insulin pen 20 units Start Insulin lispro 100 units/mL insulin pen - Continue to use inhaler as needed - Return to the ED or call 911 is symptoms return and/or worsen Discharge Diagnosis: #Mild DKA #High Anion gap?resolved #Hyperglycemia #Type 1 diabetes, insulin at home #Leukocytosis, likely reactive #History of asthma Patient seen and assessed under supervision of attending physician Dr. Barillas and discuss with senior resident Dr. James PGY-2 Caitie Huber MD PGY-1, Internal Medicine Time Spent with Patient Time attestation: Total time spent providing and/or coordinating discharge services: Time spent: Less than 30 minutes Exam Vital Signs Temp Pulse Resp BP Pulse Ox O2 Del Method 98.1 F 86 14 127/77 97 Room Air 05/14/25 12:00 05/14/25 12:05/14/25 12:05/14/25 12:05/14/25 12:05/14/25 12:00 Narrative Exam Physical Exam General: Awake and in no acute distress. Conversational and non-toxic appearing. HEENT: Normocephalic, atraumatic, mucous membranes moist. Heart: Regular rate and rhythm, normal S1 and S2, no murmurs. Lungs: Clear to auscultation with no wheezing or crackles. Abdomen: Soft, nondistended, nontender, positive bowel sounds. ?No guarding or rebound tenderness. Neurologic: Alert and oriented x3, no gross neurological deficit, and patient able to move all 4 extremities. Extremities: No edema. Skin: No rash or ecchymoses. Discharge Plan Plan Patient Disposition: HOME (Self Care) Patient condition on transfer: Stable Care Plan Goals: -Use Tresiba 20 units every night, use sliding scale with meals as needed. -Mantain adequate hydration -Use inhaler as needed. -Follow-up in [facility] in 1 to 2 weeks. Call [phone] to make an appointment Address: [facility], Replaced by [facility] [address], [address], [place], [address] -Return to ED if symptoms return or worsen. Prescriptions/Referrals Prescriptions/Med Rec: New albuterol sulfate 90 mcg/actuation HFA aerosol inhaler 1 inh inhalation QID PRN (Reason: shortness of breath or wheezing) Qty: 8.5 3RF insulin degludec [Tresiba FlexTouch U-100] 100 unit/mL (3 mL) insulin pen 20 unit subcut HS Qty: 15 3RF insulin lispro 200 unit/mL (3 mL) insulin pen See Protocol subcut USEASDIRECTD Qty: 6 0RF Protocol: Insulin Corrective High-Dose Regimen Condition: Fingerstick Blood Glucose Dose/Route: Insulin Units Condition: 141-180 mg/dl Dose/Route: 6 units/SQ Condition: 181-220 mg/dl Dose/Route: 8 units/SQ Condition: 221-260 mg/dl Dose/Route: 10 units/SQ Condition: 261-300 mg/dl Dose/Route: 12 units/SQ Condition: 301-350 mg/dl Dose/Route: 14 units/SQ Condition: 351-400 mg/dl Dose/Route: 16 units/SQ Condition: greater than 400 mg/dl Dose/Route: 18 units/SQ (DME) pen needle, diabetic [CareFine Pen Needle] 30 gauge x 5/16 needle See Rx Instructions .Route Qty: 1200 0RF Rx Instructions: As directed (DME) FreeStyle Tawana 3 Plus Sensor Device See Rx Instructions .Route Qty: 1 3RF Rx Instructions: As directed Discontinued insulin lispro [Humalog KwikPen Insulin] 100 unit/mL insulin pen 1 sliding scale dose subcut USEASDIRECTD insulin degludec [Tresiba U-100 Insulin] 100 unit/mL solution 20 unit subcut QDAY albuterol sulfate 90 mcg/actuation HFA aerosol inhaler 2 inh inhalation BID PRN (Reason: shortness of breath or wheezing) Referrals: Caitie Huber, STUDENT RE [Resident] - No Primary/Family,Physician [Primary Care Provider] - Patient/Caregiver Discharge Instructions Education Materials: CGM, Insulin How to Use and Where to Inject, Diabetes: Caring for Your Body, Diabetes: Meal Planning Print Language: Eritrean Stand Alone Forms: Robyn Award Info., Patient Portal Info Letter Discharge Order Discharge Orders: Discharge (Routine); Ordered 05/14/25 Ordered By: Maykel James Quality Discharge Quality Measures none
== END 2025-05-14 14:03 | disposition home or self-care (01) | DRG 639 ==
LOC: SERX 23:18 → SERHOLD 05-14 02:41 → S3NX 05-14 06:29
PROVIDERS: Physician Assistant; Admitting Provider Student in an Organized Health Care Education/Training Program; Emergency Provider Emergency Medicine; Visit Provider Student in an Organized Health Care Education/Training Program
DX: E10.10 Type 1 diabetes mellitus with ketoacidosis without coma (principal); E86.0 Dehydration; J45.909 Unspecified asthma, uncomplicated; Z79.4 Long term (current) use of insulin; K52.9 Noninfective gastroenteritis and colitis, unspecified; Z88.8 Allergy status to other drugs, medicaments and biological substances
CPT/HCPCS: 36415; 80053; 80069; 80307; 81001; 81025; 82010; 82803; 83036; 83690; 83735; 84100; 85025; 93225; 96361; 96374; 96375; 99284; J1200; J1815; J2765; J7120; A9270